=== PATIENT | female | born 1985 | race Caucasian/White ===

== ENCOUNTER 2018-11-16 19:23 | Emergency (ER) | payer BC ==
[2018-11-17 02:09] LABS: URINE BLOOD (Dip) POC Trace-intact (NEGATIVE); URINE GLUCOSE (Dip) POC Negative (NEGATIVE); URINE KETONES (Dip) POC Negative (NEGATIVE); URINE LEUKOCYTE EST (Dip) POC 1+ (NEGATIVE); URINE NITRITE (Dip) POC Negative (NEGATIVE); URINE TOTAL PROTEIN POC Trace (NEGATIVE)
[2018-11-17] MEDS: IBUPROFEN 600 MG TAB PO (03:04)
== END 2018-11-17 03:07 | disposition home or self-care (01) ==
LOC: FTE 19:23
DX: N39.0 Urinary tract infection, site not specified (principal)
CPT/HCPCS: 81003; 81025; 99283

== ENCOUNTER 2019-04-01 19:30 | Emergency (ER) | payer BC ==
[2019-04-01] MEDS: DEXAMETHASONE 10 MG/ML 1 ML INJ IM (20:42)
[2019-04-01] MEDS: KETOROLAC 30 MG INJ IM (20:42)
== END 2019-04-01 21:30 | disposition home or self-care (01) ==
LOC: E/R 19:30 → FTE 21:30
DX: M54.41 Lumbago with sciatica, right side (principal)
CPT/HCPCS: 81025